=== PATIENT | female | born 1960 | race Caucasian/White ===

== ENCOUNTER → 2021-08-25 | Outpatient (CLI) | payer OTHER ==
[~2021-08-25] MED LIST: CATHETER FLUSH 10 ML SYR IV PRN; REGADENOSON 0.4 MG/5 ML SYR (LEXISCAN) IV ONE
[2021-08-25 13:21] VITALS: BP 209/87
--- NOTE | 2021-08-26 07:57 | Cardiology Stress Test Report ---
Stress Test Report Date of Procedure/Referring: Date of Procedure: Aug 26, 2021 PCP Corin Go MD Admitting Physician Stephen Eddy MD Indications: HTN Baseline Heart Rate: 81 Baseline Blood Pressure: Blood Pressure Systolic: 209 Blood Pressure Diastolic: 87 Baseline Vitals Vital Signs Date Time Temp Pulse Resp B/P (MAP) Pulse Ox O2 Delivery O2 Flow Rate FiO2 08/25/21 13:21 81 209/87 (127) Baseline EKG: Baseline EKG: NSR Summary After explaining the procedure to the patient, she signed a consent and then brought to the stress nuclear laboratory. Patient received 0.4 mg Lexiscan for stress test, ECG, heart rate and blood pressure were monitored continuously. Resting and stress dose of radio tracer were injected, imaging was acquired and reviewed in short axis, horizontal long axis and vertical long axis views. TID: 1.07 SSS: 14 SDS: 12 EF: 69 1. Patient tolerated Lexiscan well 2. Baseline hypertension persisted during test 3. Reversible ischemia involving the whole anterior wall and anterolateral wall and anterior septum 4. Normal left ventricular size, EF 69% CORIN GO MD Aug 26, 2021 07:57
== END ==
LOC: CARD 12:00
PROVIDERS: ATTEND Internal Medicine Cardiovascular Disease
DX: I11.9 Hypertensive heart disease without heart failure (principal)
CPT/HCPCS: 78452; 93017; 93306; A9502

== ENCOUNTER 2021-09-01 09:08 | Day surgery (SDC) | payer OTHER ==
[~2021-09-01] VITALS: Ht 160.2 cm; Wt 124.0 kg
[2021-09-01] VITALS (9 sets, daily range): BP systolic 107–201; BP diastolic 56–84
[2021-09-01] MEDS ORDERED: LIDOCAINE 1% INJ 20 ML VIAL ONE (09:12)
[2021-09-01] MEDS ORDERED: HEParin (CATH LAB) 2,000 ML IV ONE (09:13)
[2021-09-01] MEDS ORDERED: NS IV 1000 ML 1,000 ML ONE (09:13)
[2021-09-01] MEDS ORDERED: NS IV 1000 ML 1,000 ML IV SCH ×2 (09:15→11:45)
[2021-09-01 09:36] LABS: BILIRUBIN,URINE NEGATIVE (NEGATIVE); CLARITY,URINE CLEAR; COLOR,URINE YELLOW; GLUCOSE, URINE (UA) NEGATIVE (NEGATIVE); HEMATOCRIT 46 % (35-52); HEMOGLOBIN 14.5 g/dL (11.5-16.0); KETONES,URINE TRACE (NEGATIVE); LEUKOCYTE ESTERASE ,URINE NEGATIVE (NEGATIVE); MEAN CORPUSCULAR HEMOGLOBIN 29 pg (25-34); MEAN CORPUSCULAR HGB CONC 32 g/dL (32-36); MEAN CORPUSCULAR VOLUME 91 fL (80-99); MEAN PLATELET VOLUME 11.1 fL (9.0-12.2); NITRITE,URINE NEGATIVE (NEGATIVE); PH,URINE 6.5 (5-9); PLATELET COUNT 230 10^3/uL (130-400); PROTEIN,URINE NEGATIVE (NEGATIVE); WHITE BLOOD COUNT 7.5 10^3/uL (4.3-11.0)
[2021-09-01] MEDS ORDERED: ROSU20TA32 PO (09:40)
[2021-09-01] MEDS ORDERED: MTP25TSR PO (09:40)
[2021-09-01] MEDS ORDERED: ASPI-1238 PO (09:40)
[2021-09-01 09:46] LABS: BACTERIA,URINE NEGATIVE /HPF; SQUAMOUS EPITHELIAL CELL,UR 0-2 /HPF
[2021-09-01 09:49] LABS: PROTHROMBIN TIME PATIENT 13.2 SEC (12.2-14.7)
--- NOTE | 2021-09-01 09:56 | Diagnostic Imaging Report ---
INDICATION: ABNORMAL STRESS TEST, PRE-HEART CATHETERIZATION EVALUATION. TECHNIQUE: Single view chest 9:31 AM. CORRELATION STUDY: None FINDINGS: The heart size is upper limits of normal. There is slight contour deformity at the cardiac apex. The mediastinal configuration and pulmonary vascularity are within normal limits. The lungs are clear with no consolidating infiltrate. There is no significant effusion or pneumothorax. IMPRESSION: 1. Negative for acute abnormality of the chest. Heart size is borderline enlarged and there is slight contour deformity at the cardiac apex. This is nonspecific and may be of no clinical significance. However can be associated with ventricular aneurysm or less likely mass lesion. Consideration for potential CT imaging of the chest is recommended. Dictated by: Dictated on workstation # [id number]
[2021-09-01 09:58] LABS: ALBUMIN 3.9 GM/DL (3.2-4.5); BILIRUBIN,TOTAL 0.6 MG/DL (0.1-1.0); CREATININE SERUM 0.76 MG/DL (0.60-1.30); TOTAL PROTEIN 7.1 GM/DL (6.4-8.2)
--- NOTE | 2021-09-01 10:47 | Conscious Sedation/ASA ---
Conscious Sedation Pre-Proced Time 10:47 ASA Score 3 For ASA 3 and 4: Consider anesthesia and medical clearance. Also, for patients with a history of failed moderate sedation consider anesthesia. Airway Lungs Heart ASA score ASA 1: a normal healthy patient ASA 2: a patient with a mild systemic disease (mid diabetes, controlled hypertension, obesity x ASA 3: a patient with a severe systemic disease that limits activity (angina, COPD, prior Myocardial infarction) ASA 4: a patient with an incapacitating disease that is a constant threat to life (CHF, renal failure) ASA 5: a moribund patient not expected to survive 24 hrs. (ruptured aneurysm) ASA 6: a declared brain- patient whose organs are being harvested. For emergent operations, add the letter E after the classification Mallampati Classification Grade 3 Sedation Plan Analgesia, Amnesia, Plan communicated to team members, Discussed options with patient/fam, Discussed risks with patient/fam The patient is an appropriate candidate to undergo the planned procedure, sedation, and anesthesia. The patient immediately re-assessed prior to indication. CORIN CUADRA MD Sep 01, 2021 10:47
[2021-09-01] MEDS ORDERED: VERAPAMIL 5 MG/2 ML (CALAN) VIAL IV ONE (10:48)
[2021-09-01] MEDS ORDERED: fentaNYL INJ 100 MCG/2 ML AMP ONE (10:48)
[2021-09-01] MEDS ORDERED: MIDAZOLAM 5 MG/5 ML (VERSED) VIAL ONE (10:49)
[2021-09-01] MEDS ORDERED: HEParin 1000 UNIT/ML (10ML VIAL) FOR BOLUS ONE (10:49)
[2021-09-01] MEDS ORDERED: NITRO DRIP 25000 MCG/D5W 250 ML IV ONE (10:49)
[2021-09-01] MEDS ORDERED: meTOprolol 5 MG/5 ML (LOPRESSOR) VIAL ONE ×2 (11:25→11:29)
--- NOTE | 2021-09-01 11:34 | Discharge Inst-Post CATH ---
Discharge Inst-CATH/EP Problems Reviewed?: Yes Post Cardiac Cath/EP D/C Inst Follow Up/Plan Appointment with Dr. Go's office in 2 to 4 weeks <b>CARDIAC CATH/EP PROCEDURE DISCHARGE INSTRUCTIONS</b> ACTIVITY * Go Home directly and rest. * Limit activity of the leg (or wrist if it was used) for 7 days including aer obics, swimming, jogging, bicycling, etc. * Restrict stair-climbing for 7 days if possible, if not, climb up with your non-cath leg, then bring together on the same step. * Avoid lifting, pushing, pulling or excessive movement of the affected extremi ty for 7 days. * Customary sexual activity may be resumed after 2 days-use caution not to use a position that strains or causes pain to the affected extremity. * No driving for 24 hours. * NO SMOKING. * Avoid straining for bowel movements for 7 days. * Gentle walking on level ground is allowed. * Returning to work will depend on the type of procedure and the results. Your doctor will discuss this with you. CALL YOUR DOCTOR FOR ANY OF THE FOLLOWING: *If bleeding from the puncture site occurs- Apply gentle pressure to site with clean cloth and call your doctor or EMS. * If a knot or lump forms under the skin, increases in size, or causes pain. * If bruising appears to be worsening or moving further down your leg instead of disappearing. * Temperature above 101 F. CARE OF YOUR GROIN INCISION; * Bruising or purple discoloration of the skin near the puncture site is common. * You may shower only, no bathtub bathing for 5 days. Be careful to avoid slipping as your leg may feel stiff. * If a closure device was used on your femoral artery, please see the attached guide regarding care of the device and your leg. * Leave dressing on FOR 24 hours. CARE OF YOUR WRIST INCISION; * Bruising or purple discoloration of the skin near the puncture site is common. * You may shower. * DO NOT submerge wrist. * Leave dressing on FOR 24 hours. CORIN GO MD Sep 01, 2021 11:34
[2021-09-01] MEDS ORDERED: LOSA50TA63 PO (11:40)
--- NOTE | 2021-09-01 11:40 | Cardiac Cath Report ---
Cardiac Cath Report Physician (s)/[employer] (s) Physician CORIN CUADRA MD Pre-Procedure Diagnosis Pre-Procedure Diagnosis: Coronary artery disease Post-Procedure Note Procedure Start Date: Sep 01, 2021 Name of Procedure: Left heart catheterization Findings/Procedure Note PROCEDURE NOTE: 60-year-old lady with history of hypertension, hyperlipidemia, had an abnormal stress test with anterior wall ischemia, scheduled for cardiac catheterization possible PTCA. After explaining the procedure to the patient, all pros and cons were explained, all questions were answered. The patient signed the consent and then she was placed on the cardiac catheterization laboratory. Groin was prepped SL fashion local anesthesia was used. Sheath placed in the right radial artery, [place] catheter was advanced to the left ventricular cavity, pressure was measured, pullback LV to aorta was done, patient was noted to have severe hypertension with elevated left ventricular end-diastolic pressure, given 5 mg of IV Lopressor and multiple doses of intra-arterial nitroglycerin, engaged the right and left coronary system, angiogram was done. Then I pulled the catheter back to the aortic arch and evaluated the aortic arch angiogram. At the end of the procedure the sheath was removed. Vascular band was used FINDINGS: Hemodynamics LV 197/40, end-diastolic pressure of 40 Aorta 186/94 mean of 132 ANATOMY: Left Main is free of obstructive disease Left Anterior Descending is slightly tortuous with mild disease, moderate stenosis at the ostium of diagonal branch, small artery not amendable to intervention Left Circumflex is small to moderate in size with no obstructive disease Right Coronary Artery has mild disease nonobstructive disease LV Gram was not done, pressure was measured Aorta evaluation done with aortic arch angiogram showing no dissection or aneurysm, normal origin of the brachiocephalic artery, left carotid and left subclavian arteries CONCLUSION: 1. Mild to moderate ostial diagonal artery stenosis, small artery not amendable to intervention otherwise mild coronary artery disease nonobstructive disease 2. Elevated left ventricular end-diastolic pressure 3. Normal aortic arch and great vessels of the neck 4. Severe hypertension requiring multiple doses of beta-blockers and intra- arterial nitroglycerin DISCUSSION AND RECOMMENDATION: Maximize medical therapy. No intervention is needed Anesthesia Type: Conscious Sedation Estimated blood loss (mL): 10 ml Contrast Amount: 61 ml Total Radiation Dose: 407 mGy Post-Procedure Diagnosis Post-operative diagnosis: Chest pain Coronary artery disease Hypertension Hyperlipidemia CORIN CUADRA MD Sep 01, 2021 11:40
== END 2021-09-01 14:45 | disposition home or self-care (01) ==
LOC: CATH 09:08
PROVIDERS: ATTEND Internal Medicine Cardiovascular Disease
DX: I25.119 Atherosclerotic heart disease of native coronary artery with unspecified angina pectoris (principal); I11.9 Hypertensive heart disease without heart failure; E78.2 Mixed hyperlipidemia; I65.23 Occlusion and stenosis of bilateral carotid arteries; Z79.82 Long term (current) use of aspirin; Z79.899 Other long term (current) drug therapy; Z87.891 Personal history of nicotine dependence
CPT/HCPCS: 36221; 71045; 80053; 80061; 81000; 85027; 85610; 85730; 87081; 93458; C1894; 36415; 36430